=== PATIENT | male | born 1980 | race Caucasian/White ===

== ENCOUNTER 2017-01-15 22:30 | Emergency (ER) | payer OTHER, SELFPAY ==
[~2017-01-15] VITALS: Ht 172.7 cm; Wt 70.5 kg
[2017-01-16 02:44] VITALS: BP 124/74
== END 2017-01-16 03:12 | disposition home or self-care (01) ==
LOC: EMS 22:33
DX: B02.9 Zoster without complications (principal); F17.210 Nicotine dependence, cigarettes, uncomplicated
CPT/HCPCS: 99281; 99283